=== PATIENT | male | born 1955 | race Caucasian/White ===

== ENCOUNTER 2018-05-24 18:21 | Emergency (ER) | payer MEDICARE, SELFPAY ==
[2018-05-24] VITALS (7 sets, daily range): BP systolic 113–151; BP diastolic 67–110; PULSE 96–123; RESP 18–25; O2SAT 92–98
--- NOTE | 2018-05-24 18:29 | DI.CT.S_ITS ---
PROCEDURE: CT HEAD/BRAIN WO CON INDICATIONS: stroke TECHNIQUE: Noncontrast 4.5 mm thick angled axial sections acquired from the foramen magnum to the vertex, with coronal and sagittal reformats. For radiation dose reduction, the following was used: automated exposure control, adjustment of mA and/or kV according to patient size. COMPARISON: None. FINDINGS: Image quality: Excellent. CSF spaces: Basal cisterns are patent. No extra-axial fluid collections. The ventricles are symmetric in size and shape. Brain: No intracranial bleeds or masses. There is cerebral volume loss for age, with resultant ventricular and sulcal prominence. There are periventricular and deep white matter chronic small vessel ischemic changes. Chronic, small, right frontal subcortical white matter lacunar infarcts. There is intracranial internal carotid artery atherosclerosis. Skull and face: Calvarium and visualized facial bones appear intact, without suspicious lesions. Sinuses: Visualized sinuses and mastoids are clear. IMPRESSION: 1. No acute intracranial disease process. 2. Findings telephoned to Dr. David Willett on 05/24/18 at 1834 hrs. Dictated by: Kate Larose MD, PhD on 05/24/2018 at 18:37 Approved by: Kate Larose MD, PhD on 05/24/2018 at 18:40
--- NOTE | 2018-05-24 18:32 | DI.RAD.S_ITS ---
PROCEDURE: XR CHEST 1V INDICATIONS: stroke/mental status eval TECHNIQUE: One view of the chest was acquired. COMPARISON: None. FINDINGS: Surgical changes and devices: None. Lungs and pleura: Cephalization of the pulmonary vasculature. Interstitial prominence. No pleural effusions or pneumothorax. Mediastinum: Mediastinal contours appear normal. Heart size is normal. Bones and chest wall: No suspicious bony lesions. Overlying soft tissues appear unremarkable. IMPRESSION: Cephalization of pulmonary vasculature and interstitial prominence concerning for pulmonary edema possibly related to CHF.. Dictated by: Kate Larose MD, PhD on 05/24/2018 at 19:10 Approved by: Kate Larose MD, PhD on 05/24/2018 at 19:11
[2018-05-24] MEDS: SODIUM CHLORIDE 0.9% 1,000 ML 150 ML IV (18:44)
[2018-05-24] MEDS: levETIRAcetam 1,000 MG in SODIUM CHLORIDE 0.9% 100 ML 440 ML IV (18:52)
[2018-05-24 19:13] LABS: Add Manual Diff / Slide Review NO; Basophils Absolute Auto 100 /uL (0-100); Basophils Percent Auto 0.6 % (0-2); Eosinophils Absolute Auto 300 /uL (0-450); Hematocrit 43.5 % (41-53); Hemoglobin 14.5 g/dL (13.5-17.5); Lymphocytes Absolute Auto 1800 /uL (1100-4500); Lymphocytes Percent Auto 11.4 % (25-40); Mean Corpuscular HGB Conc 33.5 % (30-36); Mean Corpuscular Hemoglobin 30.5 PG (26-34); Mean Corpuscular Volume 91.2 fL (80-100); Monocytes Absolute Auto 1300 /uL (0-900); Monocytes Percent Auto 8.1 % (3-14); Neutrophils Absolute Auto 12000 /uL (1500-7000); Neutrophils Percent Auto 77.9 % (50-75); Platelet Count 295 X10^3/uL (150-400); Red Blood Cell Count 4.76 X10^6/uL (4.5-5.9); Red Cell Distribution Width 14.3 % (11.6-14.8); White Blood Cell Count 15.5 X10^3/uL (4.5-11.0)
[2018-05-24 19:19] LABS: Prothrombin Time 11.2 SECONDS (10.1-12.7)
[2018-05-24 19:22] LABS: PTT Partial Thromboplastin Tim 23 SECONDS (26.4-36.2)
--- NOTE | 2018-05-24 19:22 | PC.NURSE ---
Patient awake, answering questions, not oriented to place or situation. Unaware of any seizure disorder history. Unable to give his allergies, current medications, or past medical history.
[2018-05-24 19:23] LABS: Lactate (Lactic Acid) 3.6 mmol/L (0.7-2.1)
[2018-05-24 19:25] LABS: Acetaminophen < 10 ug/mL (10-30); Alanine Aminotransferase 25 IU/L (21-72); Albumin 4.5 g/dL (3.5-5.0); Albumin Globulin Ratio 1.4 (1.0-2.8); Alkaline Phosphatase 117 U/L (38-126); Aspartate Aminotransferase 23 IU/L (17-59); BUN Creatinine Ratio 9.2 (6-22); Bilirubin Total 0.3 mg/dL (0.2-1.3); Blood Urea Nitrogen 12 mg/dL (9-20); Carbon Dioxide 23 mmol/L (22-32); Chloride 103 mmol/L (98-107); Creatine Kinase 169 U/L (55-170); Estimated Glomerular Filt Rate 55.6 mL/min (>60); Ethanol (ETOH) < 10 mg/dL; Globulin 3.3 g/dL (1.7-4.1); Glucose 138 mg/dL (80-110); HEMOLYSIS < 15 (0-50); Potassium 3.5 mmol/L (3.4-5.1); Sodium 138 mmol/L (137-145); Total Protein 7.8 g/dL (6.3-8.2)
[2018-05-24 19:27] LABS: Salicylate < 1.0 mg/dL (<20)
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
[2018-05-24 19:36] LABS: Troponin I < 0.012 ng/mL (0.01-0.034)
[2018-05-24 19:41] LABS: Prolactin 26.7 ng/mL (3.7-17.9)
[2018-05-24 20:00] LABS: Thyroid Stimulating Hormone 6.03 uIU/mL (0.47-4.68)
--- NOTE | 2018-05-24 20:43 | PC.NURSE ---
Patient awake. Talking on phone on stretcher. Able to get up and use urinal independently. Unable to recall event. States he does think he had one seizure last year.
[2018-05-24 20:45] LABS: Bacteria Urine None Seen; WBC Urine None Seen (0-5/HPF)
[2018-05-24 20:46] LABS: Appearance Urine UA CLEAR; Bilirubin Urine UA NEGATIVE (NEGATIVE); Color Urine UA YELLOW; Glucose Urine UA NEGATIVE (Negative); Ketones Urine UA TRACE (NEGATIVE); Leukocyte Esterase Urine UA NEGATIVE (NEGATIVE); Nitrite Urine UA NEGATIVE (Negative); Occult Blood Urine UA 1+ (Negative); Protein Urine UA 1+ (Negative); Specific Gravity Urine UA 1.025 (1.000-1.035); Urobilinogen Urine UA 0.2 E.U./dL (0.2)
[2018-05-24 20:54] LABS: Amorphous Sediment Urine 1+; RBC Urine 0-1/HPF (0-5/HPF); Urine Amphetamines Negative (Negative); Urine Barbiturates Negative (Negative); Urine Benzodiazepines Negative (Negative); Urine Cocaine Negative (Negative); Urine MDMA Negative (Negative); Urine Methadone Negative (Negative); Urine Methamphetamines Negative (Negative); Urine Morphine/Opi cutoff 2000 Negative (Negative); Urine Oxycodone Negative (Negative); Urine Phencyclidine Negative (Negative); Urine Tetrahydrocannabinol Positive (Negative); Urine Tricyclic Antidepressant Negative (Negative)
[2018-05-24 20:55] LABS: Culture Indicated Urine Cult Not Indicated; Hyaline Casts Urine 1-5/LPF
[2018-05-24 23:08] LABS: Reflexed Lactate in 2 Hours Y
== END 2018-05-24 22:32 | disposition home or self-care (01) ==
PROVIDERS: Emergency Provider Emergency Medicine
DX: R56.9 Unspecified convulsions (principal); R40.4 Transient alteration of awareness
CPT/HCPCS: 36415; 70450; 71045; 80053; 80305; 80320; 80329; 81001; 82140; 82550; 83605; 84146; 84443; 84484; 85025; 85610; 85730; 87040; 93005; 93041; 96361; 96365; 99285; 99291; G0480; J1953

== ENCOUNTER 2018-06-28 13:07 | Emergency (ER) | payer MEDICARE, SELFPAY ==
[2018-06-28] VITALS (23 sets, daily range): BP systolic 103–159; BP diastolic 62–103; PULSE 98–132; RESP 14–30; TEMP 36.2–36.8; O2SAT 92–98
[2018-06-28 13:30] LABS: Add Manual Diff / Slide Review NO; Basophils Absolute Auto 100 /uL (0-100); Basophils Percent Auto 0.4 % (0-2); Eosinophils Absolute Auto 200 /uL (0-450); Eosinophils Percent Auto 0.9 % (2-4); Hematocrit 47.4 % (41-53); Hemoglobin 14.9 g/dL (13.5-17.5); Lymphocytes Absolute Auto 2300 /uL (1100-4500); Lymphocytes Percent Auto 9.9 % (25-40); Mean Corpuscular HGB Conc 31.4 % (30-36); Mean Corpuscular Hemoglobin 29.6 PG (26-34); Mean Corpuscular Volume 94.2 fL (80-100); Monocytes Absolute Auto 1700 /uL (0-900); Monocytes Percent Auto 7.2 % (3-14); Neutrophils Absolute Auto 18800 /uL (1500-7000); Neutrophils Percent Auto 81.6 % (50-75); Platelet Count 293 X10^3/uL (150-400); Red Blood Cell Count 5.03 X10^6/uL (4.5-5.9); Red Cell Distribution Width 14.3 % (11.6-14.8); White Blood Cell Count 23.1 X10^3/uL (4.5-11.0)
--- NOTE | 2018-06-28 13:36 | DI.CT.S_ITS ---
PROCEDURE: CT CERVICAL SPINE WO CON INDICATIONS: Fall seizure TECHNIQUE: Noncontrast 3 mm thick sections acquired from the skull base to the T4 level. Sagittal and coronal reformats were then constructed. For radiation dose reduction, the following was used: automated exposure control, adjustment of mA and/or kV according to patient size. COMPARISON: None. FINDINGS: Image quality: Diagnostic. Bones: The craniocervical and atlantoaxial joints are well-maintained. The odontoid is intact. The vertebral body heights and prevertebral soft tissues are within normal limits throughout the cervical spine without evidence to suggest acute compression fracture. No other fractures are evident within the cervical spine. The bone mineralization is within normal limits. Severe multilevel degenerative changes of the cervical spine are most pronounced at C3-4 with prominent disc height loss, endplate sclerosis, posterior disc osteophyte complex, and retrolisthesis of C3 on C4. Additional areas of degenerative change are present throughout the cervical spine. Ossific/calcific densities along the dorsal soft tissues of the lower cervical region are present. Soft tissues: No prevertebral soft tissue swelling. The imaged lung apices appear to demonstrate mild atelectasis versus scarring. No pneumothorax is present. Aortic atherosclerosis is present. Imaged portions of the mediastinum are unremarkable. Otherwise, the remainder of the imaged soft tissues of the neck are within normal limits. IMPRESSION: 1. No acute fracture of the cervical spine. 2. Moderate to severe degenerative changes of the cervical spine are most pronounced at C3-4. 3. Grade 1 retrolisthesis of C3 on C4. Dictated by: Jonathan Chavez M.D. on 06/28/2018 at 13:16 Approved by: Jonathan Chavez M.D. on 06/28/2018 at 13:21
--- NOTE | 2018-06-28 13:36 | DI.CT.S_ITS ---
PROCEDURE: CT FACIAL BONES WO CON INDICATIONS: Fall with seizure TECHNIQUE: Noncontrast 2.5 mm thick axial images acquired from the mandible through the frontal sinuses, with coronal and sagittal reformatting. For radiation dose reduction, the following was used: automated exposure control, adjustment of mA and/or kV according to patient size. COMPARISON: None. FINDINGS: Image quality: Excellent. Bones and teeth: Orbital crocker are intact. Sinus crocker show no fracture or deformity. Nasal bones and septum are intact. Visualized portions of the mandible demonstrate no fractures or subluxation. Zygomatic arches are intact. Pterygoid plates are intact. Visualized portions of the skull base and auditory canals are intact. Sinuses: Mild mucosal thickening is noted involving the inferior left maxillary sinus and the superior ethmoid air cells. Otherwise, the remainder of the paranasal sinuses are clear. The mastoid air cells are also clear. Soft tissues: No edema, masses, or fluid collections. No enlarged lymph nodes. No soft tissue lacerations or debris. Vascular: Visualized vascular structures appear normal in the absence of contrast. Bony vascular foramina and canals are intact. IMPRESSION: 1. No acute fracture of the facial bones. 2. Mild left maxillary and ethmoid sinus disease. Dictated by: Jonathan Chavez M.D. on 06/28/2018 at 13:11 Approved by: Jonathan Chavez M.D. on 06/28/2018 at 13:16
--- NOTE | 2018-06-28 13:36 | DI.CT.S_ITS ---
PROCEDURE: CT HEAD/BRAIN WO CON INDICATIONS: Fall with seizure TECHNIQUE: Noncontrast 4.5 mm thick angled axial sections acquired from the foramen magnum to the vertex, with coronal and sagittal reformats. For radiation dose reduction, the following was used: automated exposure control, adjustment of mA and/or kV according to patient size. COMPARISON: [facility], CT, CT HEAD/BRAIN WO CON, 05/24/2018, 18:21. FINDINGS: Image quality: Diagnostic. CSF spaces: Basal cisterns are patent. No extra-axial fluid collections. Ventricles are normal in size and shape. Brain: No midline shift. No intracranial masses or hemorrhage. Gilbert-white matter interface is normal. Small areas of low attenuation within the deep white matter of the right frontal lobe are evident. Skull and face: Calvarium and visualized facial bones are intact, without suspicious lesions. Sinuses: Visualized sinuses and mastoids are clear. IMPRESSION: 1. No acute intracranial hemorrhage. 2. Minimal areas of encephalomalacia/chronic small vessel ischemic changes are present within the right frontal lobe. Dictated by: Jonathan Chavez M.D. on 06/28/2018 at 13:09 Approved by: Jonathan Chavez M.D. on 06/28/2018 at 13:11
[2018-06-28 13:39] LABS: Alanine Aminotransferase 10 IU/L (21-72); Albumin 4.7 g/dL (3.5-5.0); Albumin Globulin Ratio 1.2 (1.0-2.8); Alkaline Phosphatase 182 U/L (38-126); Aspartate Aminotransferase 42 IU/L (17-59); BUN Creatinine Ratio 7.9 (6-22); Bilirubin Total 0.6 mg/dL (0.2-1.3); Blood Urea Nitrogen 11 mg/dL (9-20); Carbon Dioxide 12 mmol/L (22-32); Chloride 102 mmol/L (98-107); Estimated Glomerular Filt Rate 50.9 mL/min (>60); Ethanol (ETOH) < 10 mg/dL; Glucose 280 mg/dL (80-110); HEMOLYSIS 35 (0-50); Magnesium 2.9 mg/dL (1.6-2.3); Sodium 138 mmol/L (137-145); Total Protein 8.7 g/dL (6.3-8.2)
--- NOTE | 2018-06-28 13:44 | ED.GENADULT ---
HPI - General Adult General Chief complaint: Trauma Stated complaint: Seizure Time Seen by Provider: 06/28/18 13:36 Source: EMS Mode of arrival: EMS Limitations: altered mental status History of Present Illness HPI narrative: Patient is a 63-year-old male brought in by EMS after reported seizure. Approximately 1 month ago patient had his 1st ever seizure. Was seen here in this emergency department. Was given Keppra. Was given a prescription for this medication. Patient's cousin was at bedside and stated that the patient never filled this prescription. Never followed up with the primary doctor or a neurologist. Patient's cousin states that he saw the patient earlier today. He was not around when the event happened however when individuals past by where the patient was staying they saw him laying on the ground shaking having seizure-like activity. He states that his cousin came out and did see the shaking activity. Unsure as to how long the event lasted. EMS was called. It was reported that the patient was no longer having seizure-like activity when EMS arrived however the patient was still given Valium en route secondary to him being ?combative ? Related Data Home Medications Medication Instructions Recorded Confirmed No Known Home Medications 06/28/18 06/28/18 Allergies Allergy/AdvReac Type Severity Reaction Status Date / Time No Known Drug Allergies Allergy Verified 06/28/18 14:10 Review of Systems Review of Systems ROS Unobtainable: Unobtainable due to mental status/LOC [facility] Medical History Seizure (Acute) Social History lives independently: Yes Social History lives independently: Yes Exam Initial Vital Signs Initial Vital Signs: Vital Signs Pulse Rate 104 H 06/28/18 13:00 Respiratory Rate 14 06/28/18 13:00 Blood Pressure 136/62 06/28/18 13:00 Pulse Oximetry 98 06/28/18 13:00 Const General: comfortable and No acute distress Orientation: awake and confused Limitations: altered mental status HENMT Head: other (Abrasions to the right side of the face) Ears: hearing grossly normal bilaterally Nose: external nose normal Eyes Pupils: PERRL Resp Effort & Inspection: normal respiratory effort Auscultation: clear to auscultation bilaterally Cardio Rate: tachycardic Rhythm: regular rhythm Pulses: radial pulses present GI Inspection: non-distended Palpation: soft Skin Rashes: no rashes Other: Superficial abrasions to right side of the face Neuro General: awake and moves all extremities Speech: abnormal speech Gait: ataxic Motor: muscle tone normal throughout Extrem General: capillary refill normal and No edema Other: No gross deformities Psych Appearance: disheveled Scores GCS [place] coma scale eye opening: Spontaneous [place] coma scale verbal response: Sounds [place] coma scale motor response: Localising Fco coma scale total score: 11 Course Orders Ordered: ED Orders 06/28/18 12:50 Complete Blood Count AUTO DIFF Stat Comprehensive Metabolic Panel Stat ETOH [Ethanol (ETOH)] Stat Magnesium Stat Prolactin Stat 06/28/18 13:32 Urinalysis and Microscopic Stat Urine Drug Screen, Rapid Stat 06/28/18 13:36 CT cervical spine wo con Stat CT facial bones wo con Stat CT head/brain wo con Stat 06/28/18 17:55 Ammonia (NH3) Stat Basic Metabolic Panel Stat Complete Blood Count AUTO DIFF Stat Lactate (Lactic Acid) Stat Thyroid Stimulating Hormone Stat Troponin I Stat Discontinued Medications Diphtheria/Tetanus/Acell Pertussis (Adacel) 0.5 ml IM .ONCE ONE Stop: 06/28/18 14:35 Last Admin: 06/28/18 14:41 Dose: 0.5 ml Sodium Chloride (Normal Saline 0.9%) 1,000 mls @ 1,000 mls/hr IV BOLUS ONE Stop: 06/28/18 18:44 Last Infusion: 06/28/18 19:11 Dose: 0 mls/hr Admin: 06/28/18 18:11 Dose: 1,000 mls/hr Thiamine HCl 100 mg/ Dextrose 51 mls @ 204 mls/hr IV NOW ONE Stop: 06/28/18 18:45 Last Infusion: 06/28/18 20:00 Dose: 0 mls/hr Admin: 06/28/18 19:43 Dose: 204 mls/hr Levetiracetam 1,000 mg/ Sodium (Chloride) 110 mls @ 440 mls/hr IV NOW ONE Stop: 06/28/18 18:49 Last Infusion: 06/28/18 19:42 Dose: 0 mls/hr Admin: 06/28/18 19:25 Dose: 440 mls/hr Lidocaine HCl (Urojet) 5 ml TOP NOW ONE Stop: 06/28/18 13:35 Last Admin: 06/28/18 13:50 Dose: 5 ml Lorazepam (Ativan) 1 mg IV NOW ONE Stop: 06/28/18 13:47 Last Admin: 06/28/18 14:00 Dose: 1 mg Vital Signs - 8 hr 06/28/18 13:00 06/28/18 13:15 06/28/18 13:17 Temperature 97.2 F L Pulse Rate 104 H 119 H 115 H Respiratory Rate 14 24 23 Blood Pressure 136/62 149/82 H Blood Pressure [Left Arm] 149/82 H Pulse Oximetry 98 92 96 06/28/18 13:20 06/28/18 13:30 06/28/18 13:45 Temperature Pulse Rate 119 H 102 H 100 H Respiratory Rate 24 20 22 Blood Pressure Blood Pressure [Left Arm] 144/82 H 132/75 152/103 H Pulse Oximetry 93 95 95 06/28/18 14:00 06/28/18 14:10 06/28/18 14:20 Temperature Pulse Rate 104 H 100 H 105 H Respiratory Rate 16 17 17 Blood Pressure Blood Pressure [Left Arm] 143/80 H 140/84 156/97 H Pulse Oximetry 96 96 97 06/28/18 14:40 06/28/18 14:50 06/28/18 15:33 Temperature Pulse Rate 106 H 106 H 132 H Respiratory Rate 17 17 30 H Blood Pressure Blood Pressure [Left Arm] 152/87 H 152/87 H 159/98 H Pulse Oximetry 97 97 97 06/28/18 16:18 06/28/18 16:50 06/28/18 17:30 Temperature Pulse Rate 104 H 114 H 107 H Respiratory Rate 19 14 15 Blood Pressure Blood Pressure [Left Arm] 156/100 H 137/87 130/69 Pulse Oximetry 98 98 95 06/28/18 18:11 06/28/18 18:12 06/28/18 19:45 Temperature 97.2 F L 98.3 F Pulse Rate 107 H 118 H 112 H Respiratory Rate 15 20 18 Blood Pressure 149/82 H Blood Pressure [Left Arm] 122/77 Pulse Oximetry 95 97 Medical Decision Making Medical Records Medical records reviewed: Yes I reviewed the patient's medical records. Lab Data Lab results reviewed: Yes I reviewed the patient's lab results. Result diagrams: 06/28/18 17:55 06/28/18 17:55 Lab Results 06/28/18 06/28/18 06/28/18 Range/Units 12:50 12:50 13:32 WBC 23.1 H (4.5-11.0) X10^3/uL RBC 5.03 (4.5-5.9) X10^6/uL Hgb 14.9 (13.5-17.5) g/dL Hct 47.4 (41-53) % MCV 94.2 (80-100) fL MCH 29.6 (26-34) PG MCHC 31.4 (30-36) % RDW 14.3 (11.6-14.8) % Plt Count 293 (150-400) X10^3/uL Neut % (Auto) 81.6 H (50-75) % Lymph % (Auto) 9.9 L (25-40) % [place] % (Auto) 7.2 (3-14) % Eos % (Auto) 0.9 L (2-4) % Baso % (Auto) 0.4 (0-2) % Neut # (Auto) 99616 H (5581-0043) /uL Lymph # (Auto) 2300 (0016-4939) /uL [place] # (Auto) 1700 H (0-900) /uL Eos # (Auto) 200 (0-450) /uL Baso # (Auto) 100 (0-100) /uL Sodium 138 (137-145) mmol/L Potassium 3.0 L (3.4-5.1) mmol/L Chloride 102 (98-107) mmol/L Carbon Dioxide 12 L (22-32) mmol/L BUN 11 (9-20) mg/dL Creatinine 1.40 H (0.66-1.25) mg/dL Estimated GFR 50.9 L (>60) mL/min BUN/Creatinine Ratio 7.9 (6-22) Glucose 280 H (80-110) mg/dL Lactate (0.7-2.1) mmol/L Calcium 9.0 (8.4-10.2) mg/dL Magnesium 2.9 H (1.6-2.3) mg/dL Total Bilirubin 0.6 (0.2-1.3) mg/dL AST 42 (17-59) IU/L ALT 10 L (21-72) IU/L Alkaline Phosphatase 182 H (38-126) U/L Ammonia (9-30) umol/L Total Protein 8.7 H (6.3-8.2) g/dL Albumin 4.7 (3.5-5.0) g/dL Globulin 4.0 (1.7-4.1) g/dL Albumin/Globulin Ratio 1.2 (1.0-2.8) Prolactin 12.0 (3.7-17.9) ng/mL Urine Color Urine Appearance Urine pH (4.5-8.0) Ur Specific [place] (1.000-1.035) Urine Protein (Negative) Urine Glucose (UA) (Negative) g/dL Urine Ketones (NEGATIVE) Urine Occult Blood (Negative) Urine Nitrate (Negative) Urine Bilirubin (NEGATIVE) Urine Urobilinogen (0.2) E.U./dL Ur Leukocyte Esterase (NEGATIVE) Urine RBC (0-5/HPF) Urine WBC (0-5/HPF) Urine Bacteria (None) Hyaline Casts (None) Ur Culture Indicated? Urine Opiates Screen Negative (Negative) Ur Oxycodone Screen Negative (Negative) Urine Methadone Screen Negative (Negative) Ur Barbiturates Screen Negative (Negative) U Tricyclic Antidepress Negative (Negative) Ur Phencyclidine Scrn Negative (Negative) Ur Amphetamines Screen Negative (Negative) U Methamphetamines Scrn Negative (Negative) Ur MDMA Scrn (Ecstasy) Negative (Negative) U Benzodiazepines Scrn Negative (Negative) Urine Cocaine Screen Negative (Negative) U Marijuana (THC) Screen Positive H (Negative) Ethyl Alcohol < 10 mg/dL 06/28/18 06/28/18 06/28/18 Range/Units 13:32 17:55 17:55 WBC 17.0 H (4.5-11.0) X10^3/uL RBC 4.76 (4.5-5.9) X10^6/uL Hgb 14.2 (13.5-17.5) g/dL Hct 43.0 (41-53) % MCV 90.3 D (80-100) fL MCH 29.9 (26-34) PG MCHC 33.1 (30-36) % RDW 14.2 (11.6-14.8) % Plt Count 231 (150-400) X10^3/uL Neut % (Auto) 86.1 H (50-75) % Lymph % (Auto) 5.4 L (25-40) % [place] % (Auto) 8.2 (3-14) % Eos % (Auto) 0.1 L (2-4) % Baso % (Auto) 0.2 (0-2) % Neut # (Auto) 20360 H (8533-5516) /uL Lymph # (Auto) 900 L (5709-0027) /uL [place] # (Auto) 1400 H (0-900) /uL Eos # (Auto) 0 (0-450) /uL Baso # (Auto) 0 (0-100) /uL Sodium 139 (137-145) mmol/L Potassium 3.7 (3.4-5.1) mmol/L Chloride 105 (98-107) mmol/L Carbon Dioxide 21 L (22-32) mmol/L BUN 11 (9-20) mg/dL Creatinine 1.10 (0.66-1.25) mg/dL Estimated GFR > 60.0 (>60) mL/min BUN/Creatinine Ratio 10.0 (6-22) Glucose 87 D (80-110) mg/dL Lactate (0.7-2.1) mmol/L Calcium 8.9 (8.4-10.2) mg/dL Magnesium (1.6-2.3) mg/dL Total Bilirubin (0.2-1.3) mg/dL AST (17-59) IU/L ALT (21-72) IU/L Alkaline Phosphatase (38-126) U/L Ammonia (9-30) umol/L Total Protein (6.3-8.2) g/dL Albumin (3.5-5.0) g/dL Globulin (1.7-4.1) g/dL Albumin/Globulin Ratio (1.0-2.8) Prolactin (3.7-17.9) ng/mL Urine Color Yellow Urine Appearance Clear Urine pH 5.0 (4.5-8.0) Ur Specific [place] 1.025 (1.000-1.035) Urine Protein Negative (Negative) Urine Glucose (UA) 1+ H (Negative) g/dL Urine Ketones Trace H (NEGATIVE) Urine Occult Blood 1+ H (Negative) Urine Nitrate Negative (Negative) Urine Bilirubin Negative (NEGATIVE) Urine Urobilinogen 0.2 (0.2) E.U./dL Ur Leukocyte Esterase Negative (NEGATIVE) Urine RBC None seen (0-5/HPF) Urine WBC None seen (0-5/HPF) Urine Bacteria None seen (None) Hyaline Casts 0-1/lpf (None) Ur Culture Indicated? Cult not indicated Urine Opiates Screen (Negative) Ur Oxycodone Screen (Negative) Urine Methadone Screen (Negative) Ur Barbiturates Screen (Negative) U Tricyclic Antidepress (Negative) Ur Phencyclidine Scrn (Negative) Ur Amphetamines Screen (Negative) U Methamphetamines Scrn (Negative) Ur MDMA Scrn (Ecstasy) (Negative) U Benzodiazepines Scrn (Negative) Urine Cocaine Screen (Negative) U Marijuana (THC) Screen (Negative) Ethyl Alcohol mg/dL 06/28/18 06/28/18 Range/Units 17:55 17:55 WBC (4.5-11.0) X10^3/uL RBC (4.5-5.9) X10^6/uL Hgb (13.5-17.5) g/dL Hct (41-53) % MCV (80-100) fL MCH (26-34) PG MCHC (30-36) % RDW (11.6-14.8) % Plt Count (150-400) X10^3/uL Neut % (Auto) (50-75) % Lymph % (Auto) (25-40) % [place] % (Auto) (3-14) % Eos % (Auto) (2-4) % Baso % (Auto) (0-2) % Neut # (Auto) (4214-6990) /uL Lymph # (Auto) (1292-4076) /uL [place] # (Auto) (0-900) /uL Eos # (Auto) (0-450) /uL Baso # (Auto) (0-100) /uL Sodium (137-145) mmol/L Potassium (3.4-5.1) mmol/L Chloride (98-107) mmol/L Carbon Dioxide (22-32) mmol/L BUN (9-20) mg/dL Creatinine (0.66-1.25) mg/dL Estimated GFR (>60) mL/min BUN/Creatinine Ratio (6-22) Glucose (80-110) mg/dL Lactate 2.0 (0.7-2.1) mmol/L Calcium (8.4-10.2) mg/dL Magnesium (1.6-2.3) mg/dL Total Bilirubin (0.2-1.3) mg/dL AST (17-59) IU/L ALT (21-72) IU/L Alkaline Phosphatase (38-126) U/L Ammonia 25.0 (9-30) umol/L Total Protein (6.3-8.2) g/dL Albumin (3.5-5.0) g/dL Globulin (1.7-4.1) g/dL Albumin/Globulin Ratio (1.0-2.8) Prolactin (3.7-17.9) ng/mL Urine Color Urine Appearance Urine pH (4.5-8.0) Ur Specific [place] (1.000-1.035) Urine Protein (Negative) Urine Glucose (UA) (Negative) g/dL Urine Ketones (NEGATIVE) Urine Occult Blood (Negative) Urine Nitrate (Negative) Urine Bilirubin (NEGATIVE) Urine Urobilinogen (0.2) E.U./dL Ur Leukocyte Esterase (NEGATIVE) Urine RBC (0-5/HPF) Urine WBC (0-5/HPF) Urine Bacteria (None) Hyaline Casts (None) Ur Culture Indicated? Urine Opiates Screen (Negative) Ur Oxycodone Screen (Negative) Urine Methadone Screen (Negative) Ur Barbiturates Screen (Negative) U Tricyclic Antidepress (Negative) Ur Phencyclidine Scrn (Negative) Ur Amphetamines Screen (Negative) U Methamphetamines Scrn (Negative) Ur MDMA Scrn (Ecstasy) (Negative) U Benzodiazepines Scrn (Negative) Urine Cocaine Screen (Negative) U Marijuana (THC) Screen (Negative) Ethyl Alcohol mg/dL Point of Care Testing Glucose POC 84 Point of care testing: Point of Care Testing Glucose POC [address] head: Radiologist's impression: [address] [address] [address] Scan Report Signed Patient: Josh Moseley [facility]#: [id number] : 4Acct:[id number] Age/Sex: 63 / MDate of Service: 06/28/18 Loc: ED Accession Number: [id number] Procedure: CT head/brain wo con Ordering Provider: Cristino Molina D.O. PROCEDURE: CT HEAD/BRAIN WO CON INDICATIONS: Fall with seizure TECHNIQUE: Noncontrast 4.5 mm thick angled axial sections acquired from the foramen magnum to the vertex, with coronal and sagittal reformats. For radiation dose reduction, the following was used: automated exposure control, adjustment of mA and/or kV according to patient size. COMPARISON: [facility], CT, CT HEAD/BRAIN WO CON, 05/24/2018, 18:21. FINDINGS: Image quality: Diagnostic. CSF spaces: Basal cisterns are patent. No extra-axial fluid collections. Ventricles are normal in size and shape. Brain: No midline shift. No intracranial masses or hemorrhage. Gilbert-white matter interface is normal. Small areas of low attenuation within the deep white matter of the right frontal lobe are evident. Skull and face: Calvarium and visualized facial bones are intact, without suspicious lesions. Sinuses: Visualized sinuses and mastoids are clear. IMPRESSION: 1. No acute intracranial hemorrhage. 2. Minimal areas of encephalomalacia/chronic small vessel ischemic changes are present within the right frontal lobe. Dictated by: Jonathan Chavez M.D. on 06/28/2018 at 13:09 Approved by: Jonathan Chavez M.D. on 06/28/2018 at 13:11 CT face: Radiologist's impression: [place] [address] CT Scan Report Signed Patient: Josh Moseley [facility]#: [id number] : 4Acct:[id number] Age/Sex: 63 / MDate of Service: 06/28/18 Loc: ED Accession Number: [id number] Procedure: CT facial bones wo con Ordering Provider: Cristino Molina D.O. PROCEDURE: CT FACIAL BONES WO CON INDICATIONS: Fall with seizure TECHNIQUE: Noncontrast 2.5 mm thick axial images acquired from the mandible through the frontal sinuses, with coronal and sagittal reformatting. For radiation dose reduction, the following was used: automated exposure control, adjustment of mA and/or kV according to patient size. COMPARISON: None. FINDINGS: Image quality: Excellent. Bones and teeth: Orbital crocker are intact. Sinus crocker show no fracture or deformity. Nasal bones and septum are intact. Visualized portions of the mandible demonstrate no fractures or subluxation. Zygomatic arches are intact. Pterygoid plates are intact. Visualized portions of the skull base and auditory canals are intact. Sinuses: Mild mucosal thickening is noted involving the inferior left maxillary sinus and the superior ethmoid air cells. Otherwise, the remainder of the paranasal sinuses are clear. The mastoid air cells are also clear. Soft tissues: No edema, masses, or fluid collections. No enlarged lymph nodes. No soft tissue lacerations or debris. Vascular: Visualized vascular structures appear normal in the absence of contrast. Bony vascular foramina and canals are intact. IMPRESSION: 1. No acute fracture of the facial bones. 2. Mild left maxillary and ethmoid sinus disease. Dictated by: Jonathan Chavez M.D. on 06/28/2018 at 13:11 Approved by: Jonathan Chavez M.D. on 06/28/2018 at 13:16 CT cervical spine: Radiologist's impression: [place] [address] CT Scan Report Signed Patient: Josh Moseley [facility]#: [id number] : 4Acct:[id number] Age/Sex: 63 / MDate of Service: 06/28/18 Loc: ED Accession Number: [id number] Procedure: CT cervical spine wo con Ordering Provider: Cristino Molina D.O. PROCEDURE: CT CERVICAL SPINE WO CON INDICATIONS: Fall seizure TECHNIQUE: Noncontrast 3 mm thick sections acquired from the skull base to the T4 level. Sagittal and coronal reformats were then constructed. For radiation dose reduction, the following was used: automated exposure control, adjustment of mA and/or kV according to patient size. COMPARISON: None. FINDINGS: Image quality: Diagnostic. Bones: The craniocervical and atlantoaxial joints are well-maintained. The odontoid is intact. The vertebral body heights and prevertebral soft tissues are within normal limits throughout the cervical spine without evidence to suggest acute compression fracture. No other fractures are evident within the cervical spine. The bone mineralization is within normal limits. Severe multilevel degenerative changes of the cervical spine are most pronounced at C3-4 with prominent disc height loss, endplate sclerosis, posterior disc osteophyte complex, and retrolisthesis of C3 on C4. Additional areas of degenerative change are present throughout the cervical spine. Ossific/calcific densities along the dorsal soft tissues of the lower cervical region are present. Soft tissues: No prevertebral soft tissue swelling. The imaged lung apices appear to demonstrate mild atelectasis versus scarring. No pneumothorax is present. Aortic atherosclerosis is present. Imaged portions of the mediastinum are unremarkable. Otherwise, the remainder of the imaged soft tissues of the neck are within normal limits. IMPRESSION: 1. No acute fracture of the cervical spine. 2. Moderate to severe degenerative changes of the cervical spine are most pronounced at C3-4. 3. Grade 1 retrolisthesis of C3 on C4. Dictated by: Jonathan Chavez M.D. on 06/28/2018 at 13:16 Approved by: Jonathan Chavez M.D. on 06/28/2018 at 13:21 ECG Data Attestation: I personally reviewed and interpreted this ECG as follows: Prior ECG tracings: not available for review Interpretation: Sinus tachycardia Ventricular rate of [address] T wave changes MDM Narrative Medical decision making narrative: Most of the history was provided by the patient's cousin who was here at bedside. Patient did have a for seizure 1 month ago. Has not had any follow-up since then is not taking any anti seizure medication despite a prescription that was given to him during his last ER visit. The event today sound very much like another seizure. Patient's cousin states that the patient does smoke marijuana but denies any other drugs or alcohol. The patient was given Ativan here in the emergency department so that we could obtain CT studies. He did arrive in a cervical collar this was removed after his cervical spine had a normal CT scan. Patient was observed here in the emergency department for a period of time. He did become more awake however was still unable to follow any directions or answer any questions. He was able to get in and out of bed. Moved all 4 extremities. Was somewhat directable however would not follow any instructions for fine motor movement. The abrasions on his face do not need any suturing here in the ER. There is no other signs of trauma. patient's blood sugar did drop while he was here however was able to tolerate some food which did improve his blood sugar. After several hours of observation here in the emergency department patient seemed to not be improving back to baseline. Repeat of his labs show a decrease in his leukocytosis. I do suspect this is demargination secondary to the seizure. He has no fever. I have a low suspicion for meningitis given his history and physical exam. His alcohol level was negative. Patient's cousin states he does not drink however given his ataxia and the fact that he is not returning back to normal as I would expect after a seizure he was given thiamine for concern for encephalopathy. He was also given Keppra. His physical exam is not consistent with a status state. There is no other signs of and intoxications. He has remained somewhat tachycardic despite fluids. I discussed the case with Dr. Goldstein with Neurology at [facility] who states that the patient can come down to [facility]. She was going to contact the hospitalist and tell them about the patient. We are waiting the accepting physician. Patient is stable for transport. Discharge Plan Departure Patient Disposition: [facility] Clinical Impression: Seizure Altered mental status Qualifiers: Altered mental status type: unspecified Qualified Code(s): R41.82 - Altered mental status, unspecified Prescriptions: No Action No Known Home Medications RF: 0
[2018-06-28] MEDS: LIDOCAINE 2% (UROJET) 5 ML GEL TOP (13:50)
[2018-06-28] MEDS: LORazepam 2 MG/ML SYRINGE 1 MG IV (14:00)
[2018-06-28 14:26] LABS: Bacteria Urine None Seen; RBC Urine None Seen (0-5/HPF); WBC Urine None Seen (0-5/HPF)
[2018-06-28 14:27] LABS: Appearance Urine UA CLEAR; Bilirubin Urine UA NEGATIVE (NEGATIVE); Color Urine UA YELLOW; Glucose Urine UA 1+ g/dL (Negative); Ketones Urine UA TRACE (NEGATIVE); Leukocyte Esterase Urine UA NEGATIVE (NEGATIVE); Nitrite Urine UA NEGATIVE (Negative); Occult Blood Urine UA 1+ (Negative); Protein Urine UA NEGATIVE (Negative); Specific Gravity Urine UA 1.025 (1.000-1.035); Urobilinogen Urine UA 0.2 E.U./dL (0.2)
[2018-06-28 14:35] LABS: Urine Amphetamines Negative (Negative); Urine Barbiturates Negative (Negative); Urine Benzodiazepines Negative (Negative); Urine Cocaine Negative (Negative); Urine MDMA Negative (Negative); Urine Methadone Negative (Negative); Urine Methamphetamines Negative (Negative); Urine Morphine/Opi cutoff 2000 Negative (Negative); Urine Oxycodone Negative (Negative); Urine Phencyclidine Negative (Negative); Urine Tetrahydrocannabinol Positive (Negative); Urine Tricyclic Antidepressant Negative (Negative)
[2018-06-28] MEDS: TET,DIPH,PERTUSS(ACELL),VAC/PF 0.5 ML SYRINGE IM (14:41)
[2018-06-28 14:51] LABS: Culture Indicated Urine Cult Not Indicated; Hyaline Casts Urine 0-1/LPF
--- NOTE | 2018-06-28 15:58 | PC.NURSE ---
glucose 74: given orange juice. Pt confused but airway intact, moving all extremities equally well, skin is warm and dry. Continues to have tachycardia to 130. martinez removed. Will repeat blood glucose.
[2018-06-28 18:08] LABS: Add Manual Diff / Slide Review NO; Basophils Absolute Auto 0 /uL (0-100); Basophils Percent Auto 0.2 % (0-2); Eosinophils Absolute Auto 0 /uL (0-450); Eosinophils Percent Auto 0.1 % (2-4); Hemoglobin 14.2 g/dL (13.5-17.5); Lymphocytes Absolute Auto 900 /uL (1100-4500); Lymphocytes Percent Auto 5.4 % (25-40); Mean Corpuscular HGB Conc 33.1 % (30-36); Mean Corpuscular Hemoglobin 29.9 PG (26-34); Mean Corpuscular Volume 90.3 fL (80-100); Monocytes Absolute Auto 1400 /uL (0-900); Monocytes Percent Auto 8.2 % (3-14); Neutrophils Absolute Auto 14700 /uL (1500-7000); Neutrophils Percent Auto 86.1 % (50-75); Platelet Count 231 X10^3/uL (150-400); Red Blood Cell Count 4.76 X10^6/uL (4.5-5.9); Red Cell Distribution Width 14.2 % (11.6-14.8)
[2018-06-28] MEDS: SODIUM CHLORIDE 0.9% 1,000 ML 1000 ML IV (18:11)
--- NOTE | 2018-06-28 18:13 | PC.NURSE ---
Pt continues to be confused. Can follow simple commands but unable to follow more complex commands such as using call jordan or 'sit down'. continues to be tachycardic. Gtting out of bed unassisted and then incontinent of urine. Denies pain, headache, shortness of breath. Refuses po at this time (dinner tray at bedside). Repeat labs drawn and sent. Dr. Molina aware and will decide next course of action based upon these labs.
[2018-06-28 18:20] LABS: Blood Urea Nitrogen 11 mg/dL (9-20); Calcium 8.9 mg/dL (8.4-10.2); Carbon Dioxide 21 mmol/L (22-32); Chloride 105 mmol/L (98-107); Estimated Glomerular Filt Rate > 60.0 mL/min (>60); Glucose 87 mg/dL (80-110); HEMOLYSIS < 15 (0-50); Potassium 3.7 mmol/L (3.4-5.1); Sodium 139 mmol/L (137-145)
--- NOTE | 2018-06-28 19:14 | PC.NURSE ---
continues to be confused. Dr. Molina in to re-evaluate. Potential transfer to higher level of care.
[2018-06-28] MEDS: levETIRAcetam 1,000 MG in SODIUM CHLORIDE 0.9% 100 ML 440 ML IV (19:25)
[2018-06-28] MEDS: THIAMINE 100 MG in DEXTROSE 5 % IN WATER 50 ML 204 ML IV (19:43)
[2018-06-28 20:10] LABS: Thyroid Stimulating Hormone 1.06 uIU/mL (0.47-4.68)
--- NOTE | 2018-06-28 21:09 | PC.NURSE ---
pt continues to remove monitoring engineer leads r/t MD jose david notified
[2018-06-28] MEDS: HEPARIN DRIP 25,000 UNIT/500 ML IV.SOLN 20 UNIT IV (21:39)
[2018-06-28] MEDS: HEPARIN 5,000 UNIT/ML VIAL 5000 UNIT IV (21:40)
--- NOTE | 2018-06-28 21:40 | PC.NURSE ---
verified heparin with CLEMENTINE Montero.
--- NOTE | 2018-06-28 21:41 | DI.RAD.S_ITS ---
PROCEDURE: XR CHEST 1V INDICATIONS: VT, pain TECHNIQUE: One view of the chest was acquired. COMPARISON: 05/24/18. FINDINGS: Surgical changes and devices: None. Lungs and pleura: Diffuse interstitial prominence with cephalization of the pulmonary vasculature and mild loss of vascular distinctness. No pleural effusions or pneumothorax. Mediastinum: Cardiomediastinal contours remain stable. Mild prominence of the cardiac silhouette. Bones and chest wall: No suspicious bony lesions. Overlying soft tissues appear unremarkable. IMPRESSION: Cephalization of pulmonary vasculature and interstitial prominence is concerning for pulmonary edema/CHF. Dictated by: Rigo River M.D. on 06/29/2018 at 8:33 Approved by: Rigo River M.D. on 06/29/2018 at 8:36
[2018-06-28] MEDS: ASPIRIN 300 MG SUPP PR (21:43)
[2018-06-28 21:53] LABS: PTT Partial Thromboplastin Tim 19 SECONDS (26.4-36.2)
[2018-06-29 00:01] VITALS: BP 118/79; PULSE 98; RESP 18
[2018-06-29 00:16] VITALS: BP 142/89; PULSE 107; RESP 21
[2018-06-29 00:53] VITALS: O2SAT 95
--- NOTE | 2018-06-29 00:58 | PC.NURSE ---
patient transfused for higher level of care and heparin infusion still running while patient is being transported.
== END 2018-06-29 00:55 | disposition short-term general hospital (02) ==
PROVIDERS: Emergency Medicine; Emergency Provider Emergency Medicine
DX: R56.9 Unspecified convulsions (principal); R41.82 Altered mental status, unspecified; R00.0 Tachycardia, unspecified; S09.90XA Unspecified injury of head, initial encounter; W19.XXXA Unspecified fall, initial encounter
CPT/HCPCS: 36415; 51701; 70450; 70486; 71045; 72125; 80048; 80053; 80305; 80320; 81001; 82140; 82962; 83605; 83735; 84146; 84443; 84484; 85025; 85730; 93005; 96361; 96365; 96366; 96367; 96372; 96375; 99285; 99291; 99292; 90715; G0390; J1644; J1953; J2060

== ENCOUNTER → 2018-08-05 07:52 | Outpatient (CLI) | payer MEDICARE, SELFPAY ==
--- NOTE | 2018-08-05 07:56 | DI.ECHO.S_ITS ---
[place] [facility] +---------+ : : [address] : [address] : : : : [id number] : : : : Phone: [phone]---------+ Echocardiogram Report + + :Name: ROSALIA CABRERA Study Date: 08/05/2018 Height: 73 in : :[facility] Exam Location: [place] Weight: 178 lb : : Gender: Male BSA: 2.0 m2 : :: 1955 Age: 63 yrs BP: 170/95 mmHg: :Reason For Study: STRESS CM : : Performed By: Jesus Soares : :Referring: DOMINGUEZ RG : + + Interpretation Summary Left ventricular systolic function is normal without focal wall motion abnormalities with the ejection fraction visually estimated to be 60-65%. There is mild-moderate concentric left ventricular hypertrophy but diastolic parameters suggest probable normal left ventricular diastolic function and normal filling pressures. The right ventricle is normal in size and function. Pulmonary artery pressures cannot be estimated because of the lack of a measurable TR jet velocity but the IVC suggests a CVP of around 3 mmHg. The left atrium is moderately dilated. There is moderate mitral regurgitation and mild aortic valve sclerosis back no other significant valvular heart disease. The ascending aorta is at the upper limits of normal in size. Procedure: A two-dimensional transthoracic echocardiogram with color flow and Doppler was performed. The study quality was technically adequate. There is no prior echocardiogram noted for this patient. The patient was in normal sinus rhythm during the exam. The patient had frequent PVCs during the exam. Left Ventricle: The left ventricle is normal in size. There is mild-moderate concentric left ventricular hypertrophy. Left ventricular systolic function is normal without focal wall motion abnormalities. The ejection fraction is estimated to be 60-65%. Diastolic parameters suggest probable normal left ventricular diastolic function and normal filling pressures. Right Ventricle: The right ventricle is normal in size and function. Atria: The left atrium is moderately dilated. Right atrial size is normal. The interatrial septum is intact with no evidence for an atrial septal defect. Mitral Valve: The mitral valve leaflets appear mildly thickened, but open well. The mitral valve leaflets are slightly calcified. There is moderate mitral regurgitation. Aortic Valve: The aortic valve is trileaflet. The aortic valve is mildly calcified. There is mild aortic valve sclerosis. The aortic valve opens well. No aortic regurgitation is present. Tricuspid Valve: The tricuspid valve is normal in structure and function. There is a trace or physiologic amount of tricuspid regurgitation. Pulmonary artery pressures cannot be estimated because of the lack of a measurable TR jet velocity but the IVC suggests a CVP of around 3 mmHg. Pulmonic Valve: The pulmonic valve is normal in structure and function. There is trace pulmonic regurgitation. There is no other significant valvular heart disease. Great Vessels: The aortic root is normal size. The ascending aorta is at the upper limits of normal in size. The pulmonary artery is normal size. The IVC is of normal diameter and collapses greater than 50% with a sniff. This suggests a low right atrial pressure of 3 mm Hg. Pericardium/ Pleura There is no pericardial effusion. There is no pleural effusion. MMode/2D Measurements & Calculations LVIDd: 4.9 cm LVOT diam: 2.6 cm LVIDs: 2.5 cm Ao root diam: 3.7 cm FS: 48.5 % Aortic Jxn: 2.9 cm EPSS: 0.62 cm asc Aorta Diam: 3.4 cm IVSd: 1.3 cm Ao Arch Diam (Prox Trans): 2.8 cm LVPWd: 1.3 cm LV nair. diameter/BSA (cm/m^2): 2.4 LV sys. diameter/BSA (cm/m^2): 1.2 LA dimension: 3.6 cm RA long axis: 5.2 cm LA A2 area: 25.1 cm2 RA area: 19.6 cm2 LA A4 area: 24.3 cm2 RA vol: 62.6 ml LA length (vol): 5.5 cm RA : 30.6 ml/m2 LA vol: 94.8 ml LA vol index: 46.3 ml/m2 Doppler Measurements & Calculations Ao V2 max: 84.4 cm/sec LVOT Max Germán: 75.0 cm/sec Ao V2 mean: 65.5 cm/sec LV V1 max P.2 mmHg Ao max P.9 mmHg LV V1 VTI: 16.2 cm Ao mean P.8 mmHg ALPHONSO(I,D): 4.9 cm2 Ao V2 VTI: 17.4 cm ALPHONSO(V,D): 4.6 cm2 sev ratio: 0.93 ALPHONSO indexed to BSA (cm^2/m^2): 2.4 MV E max germán: 58.9 cm/sec PA V2 max: 66.7 cm/sec MV A max germán: 45.7 cm/sec PA V2 mean: 48.1 cm/sec MV E/A: 1.3 PA mean P.99 mmHg Med Peak E' Germán: 5.0 cm/sec PA pr(Accel): 36.6 mmHg E/E' med: 11.9 PA Accel Time: 0.09 sec Lat Peak E' Germán: 7.4 cm/sec E/E' lat: 7.9 E/e' average: 9.9 MV dec time: 0.26 sec SV(LVOT): 84.7 ml Reading Physician:[place]
== END ==
PROVIDERS: PCP Student in an Organized Health Care Education/Training Program; Visit Provider Student in an Organized Health Care Education/Training Program
DX: I08.0 Rheumatic disorders of both mitral and aortic valves (principal)
CPT/HCPCS: 93306

== ENCOUNTER → 2019-07-06 09:57 | Outpatient (CLI) | payer MEDICARE, SELFPAY ==
[2019-07-06 11:20] LABS: Blood Urea Nitrogen 8 mg/dL (9-20); Calcium 9.8 mg/dL (8.4-10.2); Carbon Dioxide 25 mmol/L (22-32); Chloride 102 mmol/L (98-107); Estimated Glomerular Filt Rate 53.8 mL/min (>60); Glucose 119 mg/dL (80-110); HEMOLYSIS < 15 (0-50); Potassium 4.3 mmol/L (3.4-5.1); Sodium 139 mmol/L (137-145)
[2019-07-06 11:50] LABS: Prostate Specific Antigen Scrn 0.647 ng/mL (0.1-4.0)
== END ==
PROVIDERS: PCP Student in an Organized Health Care Education/Training Program; Visit Provider Student in an Organized Health Care Education/Training Program
DX: Z12.5 Encounter for screening for malignant neoplasm of prostate (principal); I10 Essential (primary) hypertension
CPT/HCPCS: 36415; 80048; G0103

== ENCOUNTER → 2021-07-10 08:42 | Outpatient (CLI) | payer MEDICARE, SELFPAY ==
[2021-07-10 09:10] LABS: Add Manual Diff / Slide Review NO; Basophils Absolute Auto 100 /uL (0-100); Basophils Percent Auto 1.1 % (0-2); Eosinophils Absolute Auto 400 /uL (0-450); Eosinophils Percent Auto 4.1 % (2-4); Hematocrit 42.6 % (41-53); Hemoglobin 14.5 g/dL (13.5-17.5); Lymphocytes Absolute Auto 2100 /uL (1100-4500); Lymphocytes Percent Auto 23.2 % (25-40); Mean Corpuscular HGB Conc 34.1 % (30-36); Mean Corpuscular Hemoglobin 30.3 PG (26-34); Mean Corpuscular Volume 88.9 fL (80-100); Monocytes Absolute Auto 800 /uL (0-900); Neutrophils Absolute Auto 5800 /uL (1500-7000); Neutrophils Percent Auto 62.6 % (50-75); Platelet Count 290 X10^3/uL (150-400); Red Blood Cell Count 4.79 X10^6/uL (4.5-5.9); Red Cell Distribution Width 13.5 % (11.6-14.8); White Blood Cell Count 9.2 X10^3/uL (4.5-11.0)
[2021-07-10 09:33] LABS: Alanine Aminotransferase 20 IU/L (<50); Albumin 4.5 g/dL (3.5-5.0); Albumin Globulin Ratio 1.2 (1.0-2.8); Alkaline Phosphatase 127 U/L (38-126); Aspartate Aminotransferase 27 IU/L (17-59); BUN Creatinine Ratio 8.8 (6-22); Bilirubin Total 0.5 mg/dL (0.2-1.3); Blood Urea Nitrogen 12 mg/dL (9-20); Calcium 8.9 mg/dL (8.4-10.2); Carbon Dioxide 28 mmol/L (22-32); Chloride 104 mmol/L (98-107); Cholesterol 118 mg/dL (140-199); Estimated Glomerular Filt Rate 56 mL/min (>60); Globulin 3.8 g/dL (1.7-4.1); Glucose 112 mg/dL (80-110); HDL Cholesterol 28 mg/dL (40-60); HEMOLYSIS 19 (0-50); LDL Cholesterol Calculated 27 mg/dL (<100); Potassium 4.4 mmol/L (3.4-5.1); Sodium 138 mmol/L (137-145); Total Protein 8.3 g/dL (6.3-8.2); Triglycerides 316 mg/dL (35-150)
[2021-07-10 09:50] LABS: Creatinine Urine Random 231.1 mg/dL
[2021-07-10 09:54] LABS: Microalbumi Creatinin Ratio Ur 7.7 ug/mg CR (<30); Microalbumin Urine Random 1.8 mg/dL (0-1.6)
[2021-07-10 10:02] LABS: Prostate Specific Antigen Scrn 0.664 ng/mL (0.1-4.0)
== END ==
PROVIDERS: PCP Student in an Organized Health Care Education/Training Program; Referring Provider Student in an Organized Health Care Education/Training Program; Visit Provider Student in an Organized Health Care Education/Training Program
DX: I10 Essential (primary) hypertension (principal); Z12.5 Encounter for screening for malignant neoplasm of prostate; Z79.899 Other long term (current) drug therapy; E78.2 Mixed hyperlipidemia; R93.1 Abnormal findings on diagnostic imaging of heart and coronary circulation
CPT/HCPCS: 36415; 80053; 80061; 82043; 82570; 85025; G0103

== ENCOUNTER → 2023-09-07 07:06 | Outpatient (CLI) | payer MEDICARE, SELFPAY ==
[2023-09-07 08:33] LABS: Hematocrit 41.9 % (41-53); Hemoglobin 14.2 g/dL (13.5-17.5); Mean Corpuscular HGB Conc 33.9 % (30-36); Mean Corpuscular Hemoglobin 29.6 PG (26-34); Mean Corpuscular Volume 87.2 fL (80-100); Platelet Count 292 X10^3/uL (150-400); Red Cell Distribution Width 13.5 % (11.6-14.8); White Blood Cell Count 6.9 X10^3/uL (4.5-11.0)
[2023-09-07 09:16] LABS: TSH w/ Reflex to FT4 1.81 uIU/mL (0.47-4.68)
[2023-09-07 14:34] LABS: Alanine Aminotransferase 18 IU/L (<50); Albumin 4.3 g/dL (3.5-5.0); Albumin Globulin Ratio 1.2 (1.0-2.8); Alkaline Phosphatase 140 U/L (38-126); Aspartate Aminotransferase 26 IU/L (17-59); BUN Creatinine Ratio 11.6 (6-22); Bilirubin Total 0.7 mg/dL (0.2-1.3); Blood Urea Nitrogen 17 mg/dL (9-20); Calcium 9.1 mg/dL (8.4-10.2); Carbon Dioxide 23 mmol/L (22-32); Chloride 104 mmol/L (98-107); Cholesterol 124 mg/dL (140-199); Estimated Glomerular Filt Rate 51 mL/min (>60); Globulin 3.7 g/dL (1.7-4.1); Glucose 114 mg/dL (80-110); HDL Cholesterol 36 mg/dL (40-60); HEMOLYSIS < 15 (0-50); LDL Cholesterol Calculated 60 mg/dL (<100); Potassium 4.7 mmol/L (3.4-5.1); Sodium 137 mmol/L (137-145); Triglycerides 138 mg/dL (35-150)
[2023-09-07 15:20] LABS: Vitamin B12 852 pg/mL (239-931)
== END ==
PROVIDERS: PCP Internal Medicine; Referring Provider Internal Medicine; Visit Provider Internal Medicine
DX: I51.81 Takotsubo syndrome (principal); E78.2 Mixed hyperlipidemia; N40.1 Benign prostatic hyperplasia with lower urinary tract symptoms; N18.31 Chronic kidney disease, stage 3a; E53.8 Deficiency of other specified B group vitamins; R56.9 Unspecified convulsions; N13.8 Other obstructive and reflux uropathy
CPT/HCPCS: 36415; 80053; 80061; 80175; 82607; 84153; 84443; 85027

== ENCOUNTER → 2024-06-28 07:04 | Outpatient (CLI) | payer MEDICARE, SELFPAY ==
[2024-06-28 07:53] LABS: Hematocrit 43.1 % (41-53); Hemoglobin 14.3 g/dL (13.5-17.5); Mean Corpuscular HGB Conc 33.2 % (30-36); Mean Corpuscular Hemoglobin 29.9 PG (26-34); Mean Corpuscular Volume 90.1 fL (80-100); Platelet Count 254 X10^3/uL (150-400); Red Blood Cell Count 4.79 X10^6/uL (4.5-5.9); Red Cell Distribution Width 13.5 % (11.6-14.8); White Blood Cell Count 7.1 X10^3/uL (4.5-11.0)
[2024-06-28 08:24] LABS: Alanine Aminotransferase 19 IU/L (<50); Albumin 4.3 g/dL (3.5-5.0); Albumin Globulin Ratio 1.4 (1.0-2.8); Alkaline Phosphatase 125 U/L (38-126); Aspartate Aminotransferase 24 IU/L (17-59); BUN Creatinine Ratio 6.8 (6-22); Bilirubin Total 0.6 mg/dL (0.2-1.3); Blood Urea Nitrogen 10 mg/dL (9-20); Calcium 9.2 mg/dL (8.4-10.2); Carbon Dioxide 24 mmol/L (22-32); Chloride 101 mmol/L (98-107); Cholesterol 103 mg/dL (140-199); Estimated Glomerular Filt Rate 51 mL/min (>60); Globulin 3.1 g/dL (1.7-4.1); Glucose 104 mg/dL (70-99); HDL Cholesterol 31 mg/dL (40-60); HEMOLYSIS < 15 (0-50); LDL Cholesterol Calculated 14 mg/dL (<100); Potassium 4.7 mmol/L (3.4-5.1); Sodium 135 mmol/L (137-145); Total Protein 7.4 g/dL (6.3-8.2); Triglycerides 288 mg/dL (35-150)
[2024-06-28 08:55] LABS: Prostate Specific Antigen 0.548 ng/mL (0.10-4.00)
[2024-06-28 08:56] LABS: TSH w/ Reflex to FT4 1.64 uIU/mL (0.47-4.68)
== END ==
LOC: LAB 07:05
PROVIDERS: PCP Internal Medicine; Referring Provider Internal Medicine; Visit Provider Internal Medicine
DX: I12.9 Hypertensive chronic kidney disease with stage 1 through stage 4 chronic kidney disease, or unspecified chronic kidney disease (principal); N18.31 Chronic kidney disease, stage 3a; N40.1 Benign prostatic hyperplasia with lower urinary tract symptoms; R56.9 Unspecified convulsions; N13.8 Other obstructive and reflux uropathy
CPT/HCPCS: 36415; 80053; 80061; 80175; 84153; 84443; 85027